=== PATIENT | female | born 1965 | race Caucasian/White ===

== ENCOUNTER → 2019-05-30 10:39 | Outpatient (CLI) | payer OTHER, SELFPAY ==
[2019-05-30 10:33] VITALS: BMI 34.5
--- NOTE | 2019-05-30 10:40 | RAD_ITS ---
STUDY: X-RAY - CERVICAL SPINE REASON FOR EXAM: Female, 53 years old. Neck pain for 4 days. TECHNIQUE: 5 view(s) of the cervical spine were obtained. COMPARISON: None FINDINGS: Normal anterior atlantoaxial articulation. Normal odontoid process. Normal cervical lordosis. Normal vertebral bodies and endplates. Mild degenerative disc changes primarily at C5-6. Mild uncovertebral arthrosis at the same level. Facet arthrosis at C4-5. Bilateral mild carotid artery calcifications. RAD/Cerv Spine 4 or 5 Views IMPRESSION: Normal alignment of the cervical spine without fracture, osteolytic or blastic bone lesion. Mild degenerative disc and joint changes at C5-6 and C4-5. Electronically Signed: Kiara Garcia MD at 21:42 EST , Service support ,
--- NOTE | 2019-05-30 10:40 | RAD_ITS ---
STUDY: X-RAY - RIGHT SHOULDER REASON FOR EXAM: Female, 53 years old. Pain for 4 days. TECHNIQUE: 4 view(s) of the shoulder. COMPARISON: None. FINDINGS: Normal glenohumeral articulation. Normal acromioclavicular joint. Normal acromion. Normal humeral head and visualized proximal humerus. Surgical yareli in the right axilla. Normal visualized pulmonary apex. RAD/Shoulder min 2 Views IMPRESSION: Normal x-ray examination of the shoulder. Electronically Signed: Kiara Garcia MD at 22:10 EST , Service support ,
== END ==
PROVIDERS: Referring Provider Orthopaedic Surgery; Visit Provider Orthopaedic Surgery
DX: M25.511 Pain in right shoulder (principal); M54.2 Cervicalgia
CPT/HCPCS: 72050; 73030

== ENCOUNTER → 2019-06-21 12:23 | Outpatient (CLI) | payer OTHER, SELFPAY ==
[2019-05-30 10:33] VITALS: BMI 34.5
--- NOTE | 2019-06-21 12:23 | MRI_ITS ---
STUDY: MRI RIGHT SHOULDER REASON FOR EXAM: Female, 53 years old. rt shoulder injury -- fell on outstretched arm 1 month ago, pain with limited rom TECHNIQUE: Standardized fat and water weighted pulse sequences were obtained in all 3 orthogonal planes. COMPARISON: Right shoulder x-ray dated May 30, 2019 FINDINGS: A mild impaction fracture of the greater tuberosity and lateral aspect of the humeral head is present with minimal cortical offset and diffuse marrow edema in the affected regions. No fully displaced fragment is demonstrated. The anterior superior aspect of the glenoid labrum is torn and detached from its site of origin and also associated with stripping of the periosteum from the anterior aspect of the glenoid. The remaining aspects of the glenoid are normal. Normal supraspinatus tendon. Normal infraspinatus tendon. Normal subscapularis tendon. Normal teres minor tendon. Normal supraspinatus muscle. Normal infraspinatus muscle. Normal subscapularis muscle. Normal teres minor muscle. Normal glenohumeral articulation. Normal biceps labral complex. Normal intracapsular long biceps tendon. Normal capsulo- ligamentous complex. Normal rotator interval. Normal acromioclavicular articulation. There is a Type II morphology (curved), with a neutral orientation. There is no subacromial-subdeltoid bursal fluid. Normal visualized coracohumeral and coracoacromial ligaments. Normal quadrilateral space. Normal axillary space. Normal deltoid muscle. Normal trapezius muscle. MRI/Upper Ext Joint Only(Routine) IMPRESSION: 1. A mild impaction fracture of the greater tuberosity and lateral aspect of the humeral head is present with minimal cortical offset and diffuse marrow edema in the affected regions. No fully displaced fragment is demonstrated. The anterior superior aspect of the glenoid labrum is torn and detached from its site of origin and also associated with stripping of the periosteum from the anterior aspect of the glenoid. The remaining aspects of the glenoid are normal. 1. Electronically Signed: David Jordan MD at 17:50 EST , Service support ,
== END ==
PROVIDERS: Referring Provider Orthopaedic Surgery; Visit Provider Orthopaedic Surgery
DX: M75.100 Unspecified rotator cuff tear or rupture of unspecified shoulder, not specified as traumatic (principal); S49.91XA Unspecified injury of right shoulder and upper arm, initial encounter
CPT/HCPCS: 73221

== ENCOUNTER 2019-08-24 15:00 | Outpatient (RCR) | payer OTHER, SELFPAY ==
[2019-06-25 13:32] VITALS: BMI 34.5
--- NOTE | 2019-07-02 13:40 | HP.PTEVAL_ITS ---
Patient's Visit Information SVEN ALBERTO is a 53 year old F referred to Physical Therapy by Esau Vega DO with a diagnosis of R SLAP and greater tuberosity fracture.. Date of Evaluation: 07/02/19 Physical Therapist: Keenan Francis, DPT, OCS, CSCS - Visit Plan Frequency: 1-2x /Week Duration: 4-6 Weeks Plan: weekly to 3x/week depending on healing process x 4-6 weeks. Progress HEP PAROM to strength and return to function via HEP progressiona nd increase to 3x/week if not improving for modalities and manual. - Subjective Findings: Torn ligament in shoulder and fracture. Slipped on hard wood floor adn landed on R UE. That was Novem 30. Saw Dr. Sapp May 30 and wanted MRI but finally got it 2 weeks ago. Had been going with no sling and just taking it easy. ROM is improving and function as she can now eat but cannot reach overhead or do hair because it hurts. Driving hurts. Sleeping is challenging trying L side. 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 Rest for one week and then start therapy which is why she is here. Enjpys home improvement stuff and garden and swim but cannot right now due to shoulder. - Pain R shoulder Pain Intensity (Out of 10): 1 Pain Intensity Range: 1, 7 Comment: driving adn reaching are worse - Objective Forward head and forward scap posture. Tender supra insert and Greater tubercle. Cervical and scap ROM good and symmetrical without pain. Elbow and wrist ROM full and painfree. L shoulder WFL,. R shoulder: 70 flexion and 50 ext rotation AROM, slow IR. 55 abduction. PROM 80 flexion, 60 external, full IR with end range pain. + HK and neer. Strength L UE 4/5. r shoulder NT, elbow 4/5 B - Goals Goal 1:: Full aROM R shoulder ext rotationand flexion/abd without pain. Goal Time Frame: 2-4 Weeks Goal 2:: Patient I appropr HEP to minimize future problems Goal Time Frame: 4-6 Weeks Goal 3:: Pt back to 100% normal function Goal Time Frame: 4-6 Weeks Goal 4:: Perfect score on quick DASH Goal Time Frame: 4-6 Weeks - Rehabilitation Potential Physical Therapy Diagnosis: R shoulder pain and diminished ROM after fall. Rehabilitation Potential: Fair - Anticipated Interventions Patient/Client Instruction: Educate patient on: Condition, Plan of Care For the Purpose of:: To decrease pain, To increase ROM, To increase tolerance to activity/condition/position, To improve ability of physical actions for home/community/work/leisure Therapeutic Exercise to Include: Strength training, Postural training, Fl exibilty training, Passive ROM, Active ROM, Dynamic Lumbar Stabilization For the Purpose of:: To decrease pain, To increase ROM, To improve muscle performance and motor function, To increase tolerance to activity/condition/position, To improve ability of physical actions for home/community/work/leisure Thank you for the opportunity to evaluate your patient. For Medicare and Medicare HMO plans, please review the plan of care and approve it. It will need to be FAXED BACK to us at [phone] for Medicare purposes. For Medicare only, by signing this I certify the plan of care. Please let me know if there are questions or concerns regarding this plan of care. Physician Signature: Date:
--- NOTE | 2019-08-07 11:23 | HP.PTREVAL ---
Esau Vega, DO, It has been my pleasure to treat SVEN ALBERTO over the last 5 visits for R SLAP and greater tuberosity fracture.. Please see the progress note below for an update on the physical therapy plan of care! Subjective: To doctor tomorrow. No pain unless stretching it up and out. Get to 3/10 transiently. Gets it only with stretches. Sleep is OK. Activities are pretty normal. Plateaud progress in last couple weeks. Objective/Function: 160 AROM flexiona dn abduction with just some tightness at end range. Full ext adn int rotation today without pain. Unable to lift arm in speeds position due to pain. strength flexiona dn abd 4- and ext rotation 4- adn IR 4+ on R UE, slight discomfort with flexiona nd abduction. Overall showing slow steady improvement, pt frustrated slightly with her seeming plateau but strengthening is just getting started. Plan Plan: Pt to doctor tomorrow for recheck. Slow progress is happening and, if no other better options, would recommend continued weekly PT to progress HEP strengthening.2-4 more weeks. Fair prognosisii for continued slow improvement. Goals still appropriate with 2-4 week timeframe. Goals Goal 1:: Full aROM R shoulder ext rotationand flexion/abd without pain. Goal Time Frame: 2-4 Weeks Goal Progress: Progressing Goal 2:: Patient I appropr HEP to minimize future problems Goal Time Frame: 4-6 Weeks Goal Progress: Progressing Goal 3:: Pt back to 100% normal function Goal Time Frame: 4-6 Weeks Goal Progress: Goal Met, but sore! Goal 4:: Perfect score on quick DASH Goal Time Frame: 4-6 Weeks Goal Progress: Progressing Anticipated Interventions Patient/Client Instruction: Educate patient on: Condition, Plan of Care For the Purpose of:: To decrease pain, To increase ROM, To increase tolerance to activity/condition/position, To improve ability of physical actions for home/community/work/leisure Therapeutic Exercise to Include: Strength training, Postural training, Flexibilty training, Passive ROM, Active ROM, Dynamic Lumbar Stabilization For the Purpose of:: To decrease pain, To increase ROM, To improve muscle performance and motor function, To increase tolerance to activity/condition/position, To improve ability of physical actions for home/community/work/leisure Please do not hesitate to contact me at [phone] by phone or if you have questions or concerns regarding this new plan of care! Sincerely, Keenan Francis, DPT, OCS, CSCS
--- NOTE | 2019-10-16 16:47 | HP.PT.NRP ---
SVEN ALBERTO was seen in my office for initial evaluation on 07/02/19. The following Plan of Care was established for this patient: Initial Frequency: 1-2x /Week Initial Duration: 4-6 Weeks Patient/Client Instruction: Educate patient on: Condition, Plan of Care For the Purpose of:: To decrease pain, To increase ROM, To increase tolerance to activity/condition/position, To improve ability of physical actions for home/community/work/leisure Therapeutic Exercise to Include: Strength training, Postural training, Flexibilty training, Passive ROM, Active ROM, Dynamic Lumbar Stabilization For the Purpose of:: To decrease pain, To increase ROM, To improve muscle performance and motor function, To increase tolerance to activity/condition/position, To improve ability of physical actions for home/community/work/leisure This patient was last seen in our office 08/24/19. Pertinent comments regarding their Physical therapy will appear below: Pt seen for 7 visits and was only showing slow progress. I called her today and she saw doctor after last visit who gave her antiinflammatories and said it would take a while. No more therapy recommended. Will discontinue due to nonattendance. At this point I will be discontinuing this patient from physical therapy. I would be happy to see this patient again in the future if found appropriate by the physician. Thank you! Keenan Francis, DPT, OCS, CSCS
== END 2019-08-24 19:00 | disposition home or self-care (01) ==
LOC: PT 15:00
PROVIDERS: Referring Provider Orthopaedic Surgery; Visit Provider Orthopaedic Surgery
DX: S42.253D Displaced fracture of greater tuberosity of unspecified humerus, subsequent encounter for fracture with routine healing (principal); S43.439D Superior glenoid labrum lesion of unspecified shoulder, subsequent encounter
CPT/HCPCS: 97110; 97140; 97161; 97530

== ENCOUNTER → 2019-08-29 | Outpatient (CLI) | payer OTHER, SELFPAY ==
[2019-08-29 11:35] VITALS: BMI 34.5
--- NOTE | 2019-08-29 11:49 | RAD_ITS ---
STUDY: X-RAY - RIGHT SHOULDER REASON FOR EXAM: Female, 54 years old. PAIN TECHNIQUE: 4 view(s) of the shoulder. COMPARISON: Prior study of 05/30/2019 FINDINGS: Normal glenohumeral articulation. Normal acromioclavicular joint. Normal acromion. There is a linear lucency of the humeral greater tuberosity with minimal periosteal reaction superiorly and mild associated sclerosis. Findings are suspicious for healing fracture. Surgical clips are seen in the right axilla. Normal visualized pulmonary apex. RAD/Shoulder min 2 Views IMPRESSION: Linear lucency of the humeral greater tuberosity with minimal periosteal reaction superiorly and mild associated sclerosis. Findings are suspicious for healing nondisplaced fracture. Surgical clips are seen in the right axilla. Electronically Signed: Gavin Smith MD at 22:30 EDT , Service support ,
== END | disposition home or self-care (01) ==
LOC: HPRAD 11:49
PROVIDERS: Referring Provider Orthopaedic Surgery; Visit Provider Orthopaedic Surgery
DX: S42.254A Nondisplaced fracture of greater tuberosity of right humerus, initial encounter for closed fracture (principal); S43.431A Superior glenoid labrum lesion of right shoulder, initial encounter
CPT/HCPCS: 73030